=== PATIENT | male | born 1940 | race Caucasian/White ===

== ENCOUNTER 2020-03-02 13:11 | Outpatient (CLI) | payer MEDICARE, OTHER ==
--- NOTE | 2020-03-02 16:18 | MRI ---
MRI OF RIGHT SHOULDER PERFORMED WITHOUT CONTRAST ENHANCEMENT: 03/02/20 HISTORY: Right shoulder pain. 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 There is a massive rotator cuff tear involving the entirety of the supraspinatus tendon and the major ity of the infraspinatus. The residual portion of the posterior fibers of the infraspinatus tendon sh ow markedly thickened abnormal amorphous appearance. This probably represents granulation tissue rela ashtyn to extensive tear. The tendons are retracted on an average about 3.6 cm in the AP dimension and t he full thickness of the component of the tear is 3 cm. The subscapularis tendon shows a very thin appearance to the superior fibers with partial tear with some evidence of delamination of the superior fibers. I cannot definitely identify an intra-articular portion of the biceps tendon. There is an abnormal appearing residual tendon in the lower bicipital groove. Superior labrum is truncated. Inferior glenohumeral ligament is intact. Some slight increased signal change on the undersurface of the anterior inferior labrum and some signal change within the posterior labrum are probably related to degenerative fraying. There is moderate atrophy of the supraspinatus muscle. Mild atrophy of the superior fibers of the inf raspinatus and mild atrophy to the subscapularis muscle. IMPRESSION: 1. Massive rotator cuff tear as described above. 2. Truncated superior labrum. I cannot definitely identify an intra-articular portion of biceps tendon. Abnormal residual tendon in the lower bicipital groove. There is a partial tear and some cathy mination of the superior fibers of the subscapularis tendon. POS: PATRICK
== END 2020-03-02 13:12 | disposition home or self-care (01) ==
LOC: SCSMRI 13:11
PROVIDERS: ATTEND Orthopaedic Surgery
DX: M75.101 Unspecified rotator cuff tear or rupture of right shoulder, not specified as traumatic (principal); S46.912A Strain of unspecified muscle, fascia and tendon at shoulder and upper arm level, left arm, initial encounter

== ENCOUNTER 2022-10-17 01:24 | Inpatient (IN) | payer MEDICARE ==
[2022-10-17 01:40] VITALS: BMI 24.7
[2022-10-17] MEDS ORDERED: Acetaminophen 650 MG Suppository PR PRN (04:19)
[2022-10-17] MEDS ORDERED: Ondansetron PF 4 MG/2 ML Vial IVP PRN (04:19)
[2022-10-17] MEDS ORDERED: Acetaminophen 325 MG TAB PO PRN (04:19)
[2022-10-17] MEDS ORDERED: Ondansetron ODT 4 MG TAB PO PRN ×2 (04:19→10:47)
[2022-10-17 08:00] LABS: Anion Gap 12 mmol/L (10-20); BUN (Urea Nitrogen) 8 mg/dL (8.4-25.7); Calc. Creatinine Clearance 91 mL/min (70-130); Calcium 7.9 mg/dL (7.8-10.44); Carbon Dioxide 21 mmol/L (23-31); Chloride 97 mmol/L (98-107); Estimated GFR 92; Glucose 97 mg/dL (83-110); Potassium 3.5 mmol/L (3.5-5.1); Sodium 126 mmol/L (136-145)
[2022-10-17] MEDS ORDERED: Dexamethasone 10 MG/ML VIAL SLOW IVP SCH (09:00)
[2022-10-17] MEDS ORDERED: Enoxaparin Sodium 40 MG/0.4 ML SYRINGE SC SCH (09:00)
[2022-10-17] MEDS ORDERED: Lorazepam 1 MG TAB PO PRN (10:47)
[2022-10-17] MEDS ORDERED: Lorazepam 2 MG/ML VIAL IM PRN (10:47)
[2022-10-17] MEDS ORDERED: Thiamine HCl 200 MG/2 ML VIAL SLOW IVP SCH (11:00)
[2022-10-17] MEDS ORDERED: Electrolyte Replacement Protocol 1 EACH FS SCH (11:00)
[2022-10-17] MEDS ORDERED: Albuterol 200 PUFF (6.7GM INHALER) INH PRN (11:03)
[2022-10-17] MEDS ORDERED: Electrolyte Replacement Protocol FS PRN (11:15)
[2022-10-17] MEDS ORDERED: Multivit, Therapeutic 1 TAB PO SCH (11:15)
[2022-10-17] MEDS ORDERED: Folic Acid 1 MG TAB PO SCH (11:15)
[2022-10-17] MEDS ORDERED: Potassium Chloride 20 MEQ TAB PO SCH (11:15)
[2022-10-17] MEDS ORDERED: Lorazepam 1 MG TAB PO SCH (12:00)
[2022-10-17 16:48] VITALS: BP 143/63; TEMP 98.3
[2022-10-18] MEDS ORDERED: Multivit, Therapeutic 1 TAB PO SCH (09:00)
[2022-10-18] MEDS ORDERED: Folic Acid 1 MG TAB PO SCH (09:00)
[2022-10-18] MEDS ORDERED: Lorazepam 1 MG TAB PO PRN (10:47)
[2022-10-19] MEDS ORDERED: Lorazepam 1 MG TAB PO PRN (10:47)
[2022-10-19] MEDS ORDERED: Lorazepam 0.5 MG TAB PO SCH (18:00)
[2022-10-20] MEDS ORDERED: Thiamine 100 MG TAB PO SCH (09:00)
[2022-10-20] MEDS ORDERED: Lorazepam 0.5 MG TAB PO PRN (10:47)
== END 2022-10-17 16:11 | disposition home or self-care (01) | DRG 177 ==
LOC: T4-A 01:25
PROVIDERS: ADMIT Family Medicine; ATTEND Family Medicine
PROC: 3E0333Z Introduction of Anti-inflammatory into Peripheral Vein, Percutaneous Approach (ICD-10-PCS; principal; 2022-10-17)
PROC: 8E0ZXY6 Isolation (ICD-10-PCS; 2022-10-17)
DX: U07.1 COVID-19 (principal); J12.82 Pneumonia due to coronavirus disease 2019; E87.1 Hypo-osmolality and hyponatremia; F41.9 Anxiety disorder, unspecified; F32.A Depression, unspecified; I10 Essential (primary) hypertension; E78.5 Hyperlipidemia, unspecified; F10.20 Alcohol dependence, uncomplicated; Z79.899 Other long term (current) drug therapy
CPT/HCPCS: 36415; 80048; 83930; 83935; 84300; J1100; J1650